=== PATIENT | female | born 1990 | race Caucasian/White ===

== ENCOUNTER 2018-05-18 16:57 | Outpatient (CLI) | payer OTHER ==
[~2018-05-18] VITALS: Ht 177.8 cm; Wt 138.2 kg
[~2018-05-18 16:57] MED LIST: NORCO 325 MG-51 TAB PO; PRENATAL1 TA7 PO; SPRINTEC 35 MCG1 TAB PO
[2018-05-18 17:00] VITALS: BP 128/73; PULSE 96
[2018-05-18 17:30] VITALS: BP 132/65; PULSE 94
== END 2018-05-18 17:30 | disposition home or self-care (01) ==
LOC: LDRO 16:57
DX: O99.89 Other specified diseases and conditions complicating pregnancy, childbirth and the puerperium (principal); R11.0 Nausea; Z3A.18 18 weeks gestation of pregnancy

== ENCOUNTER 2018-06-22 14:05 | Emergency (ER) | payer OTHER ==
[~2018-06-22] VITALS: Ht 180.3 cm; Wt 138.2 kg
[2018-06-22 14:10] VITALS: TEMP 98.1
[2018-06-22 15:57] LABS: BASO % 0.3 % (0.0-2.0); EOS # 0.1 (0.0-0.7); EOS % 0.4 % (0-4.0); GRAN % 77.5 % (42.2-75.2); HEMOGLOBIN 12.5 g/dl (12.5-16.0); LYMPH % 17.1 % (20.0-51.0); MEAN CELL VOLUME 87 fl (80.0-100.0); MEAN CORPUSCULAR HEMOGLOBIN 30 pg (27.0-31.0); MEAN CORPUSCULAR HGB CONC 34 g/dl (33.0-37.0); MEAN PLATELET VOLUME 10.7 fl (7.4-10.4); MONO # 0.5 (0.1-0.6); MONO % 4.3 % (1.7-9.3); PLATELET COUNT 231 K/mm3 (130-400); RED BLOOD COUNT 4.21 M/mm3 (4.10-5.30); REDCELL DISTRIBUTION WIDTH-CV 13.8 % (11.5-14.5)
[2018-06-22 16:02] LABS: HEMATOCRIT 36.7 % (37.0-47.0)
[2018-06-22 16:17] LABS: ALBUMIN 3.6 gm/dL (3.5-5.0); BILIRUBIN,TOTAL 0.3 mg/dL (0.0-1.0); CALCIUM 9.4 mg/dL (8.4-10.2); CREATININE, serum 0.55 mg/dL (0.52-1.25); MAGNESIUM 1.7 mg/dL (1.6-2.3); TOTAL PROTEIN 6.9 gm/dL (6.4-8.2)
[2018-06-22 16:55] LABS: COLLECTION METHOD CLEAN CATCH
[2018-06-22 17:03] LABS: INR 1.1 (0.8-3.0); PROTHROMBIN TIME 12.2 SECONDS (9.7-12.8)
[2018-06-22 17:07] LABS: MUCOUS Present /lpf; PH 6 (5-8); URINE APPEARANCE Hazy; URINE BACTERIA Rare /hpf; URINE BILIRUBIN Negative (NEGATIVE); URINE BLOOD Negative (NEGATIVE); URINE COLOR Yellow; URINE GLUCOSE Negative (NEGATIVE); URINE KETONE 1+ (NEGATIVE); URINE LEUKOCYTE ESTERASE 1+ (NEGATIVE); URINE NITRATE Negative (NEGATIVE); URINE PROTEIN(semi-quant) Negative (NEGATIVE); URINE RBC 0-2 /hpf
[2018-06-22] MEDS ORDERED: MACROBID 1100 MG/CAP PO (17:52)
[2018-06-22 18:13] VITALS: BP 121/69; PULSE 83
== END 2018-06-22 18:14 | disposition home or self-care (01) ==
LOC: COL.ER 14:05
PROVIDERS: Emergency Medicine
DX: O23.92 Unspecified genitourinary tract infection in pregnancy, second trimester (principal); O26.892 Other specified pregnancy related conditions, second trimester; R00.2 Palpitations; Z90.89 Acquired absence of other organs; Z98.890 Other specified postprocedural states; Z3A.00 Weeks of gestation of pregnancy not specified
CPT/HCPCS: A4216; J0696; J7040

== ENCOUNTER 2019-05-04 10:36 | Inpatient (IN) | payer OTHER ==
[2019-05-04] VITALS (10 sets, daily range): BP systolic 138–187; BP diastolic 74–99; PULSE 63–95; TEMP 97–98.8
[~2019-05-04] VITALS: Ht 180.3 cm; Wt 132.7 kg
[~2019-05-04 10:36] MED LIST changes: +MACROBID 1100 MG/CAP PO
[2019-05-04] MEDS ORDERED: SPRINTEC 35 MCG1 TAB PO (10:47)
[2019-05-04 12:00] LABS: BASO % 0.2 % (0.0-2.0); GRAN # 8.9 (1.4-6.5); GRAN % 87.3 % (42.2-75.2); HEMATOCRIT 43.9 % (37.0-47.0); HEMOGLOBIN 14.4 g/dl (12.5-16.0); LYMPH # 0.9 (1.2-3.4); LYMPH % 8.9 % (20.0-51.0); MEAN CELL VOLUME 81 fl (80.0-100.0); MEAN CORPUSCULAR HEMOGLOBIN 26 pg (27.0-31.0); MEAN CORPUSCULAR HGB CONC 33 g/dl (33.0-37.0); MEAN PLATELET VOLUME 10.7 fl (7.4-10.4); MONO # 0.3 (0.1-0.6); MONO % 3.3 % (1.7-9.3); PLATELET COUNT 326 K/mm3 (130-400); RED BLOOD COUNT 5.45 M/mm3 (4.10-5.30); REDCELL DISTRIBUTION WIDTH-CV 15.9 % (11.5-14.5)
[2019-05-04 12:12] LABS: ALBUMIN 4.4 gm/dL (3.5-5.0); BILIRUBIN,TOTAL 1.7 mg/dL (0.0-1.0); C-REACTIVE PROTEIN 2.4 mg/dL (0.0-0.9); CALCIUM 9.7 mg/dL (8.4-10.2); CREATININE, serum 0.87 (0.52-1.25); POTASSIUM 4.5 mmol/L (3.4-5.0); TOTAL PROTEIN 8.4 gm/dL (6.4-8.2)
--- NOTE | 2019-05-04 13:50 | NUR ---
arrived on unit per WC and assisted into bed, and infant daughter at bedside
--- NOTE | 2019-05-04 14:00 | NUR ---
admission assessment completed, see for further info, denies needs at this time
--- NOTE | 2019-05-04 15:04 | NUR ---
Dr Torres in to see patient, to surgery per bed
--- NOTE | 2019-05-04 15:15 | NUR ---
to surgery per bed
--- NOTE | 2019-05-04 17:35 | NUR ---
arrived on unit per bed from PACU, awake and alert, IV infusing per gravity, robotic sites with liriano set and CD&I,
--- NOTE | 2019-05-04 17:45 | NUR ---
visiting with family, c/o pain in chest and explained this is from the surgery and air in the abdomen, verbalizes understanding
--- NOTE | 2019-05-04 18:15 | NUR ---
C/O pain and medicated with motrin 600mg, had some clear liquids and tolerated well, encouraged to take liquids without a straw, verbalizes understanding
--- NOTE | 2019-05-04 18:30 | NUR ---
C/O some nausea, encourage to wait to have any more liquids until maybe it passes
--- NOTE | 2019-05-04 19:05 | NUR ---
bedside shift report given to MARICEL Kilgore
--- NOTE | 2019-05-04 19:35 | NUR ---
Report received. Assumed care for shift production supervisor. Assessment complete. VS stable. 5 robotic lap sites to abdomen-edges well approximated-slight bruising noted. C/O pain as well as [place]-no emesis. Zofran given per dr order. Morphine also given for pain per dr order. States pain is on right side rating it 5/10-described as constant throbbing. IV to right AC infusing LR. Instructed to call when ready to try to void. Discussed ambulation for this shift as well. Denies questions or concerns. Call light in reach. Bed in low position/wheels locked. Will monitor.
[2019-05-05] VITALS (8 sets, daily range): BP systolic 131–152; BP diastolic 69–85; PULSE 50–67; TEMP 97.5–98.6
[2019-05-05 06:50] LABS: ALBUMIN 3.6 gm/dL (3.5-5.0); BILIRUBIN,TOTAL 2.9 mg/dL (0.0-1.0); CALCIUM 8.9 mg/dL (8.4-10.2); CREATININE, serum 0.84 (0.52-1.25); POTASSIUM 4.3 mmol/L (3.4-5.0)
--- NOTE | 2019-05-05 08:00 | NUR ---
NPO. Abdominal lap sites x 5 CDI. No complaints. Ambulatory in room.
--- NOTE | 2019-05-05 09:50 | NUR ---
Consent signed for ERCP. To procedure with OR staff.
--- NOTE | 2019-05-05 10:35 | NUR ---
Returned to room. VSS. Family at bedside.
--- NOTE | 2019-05-05 11:20 | NUR ---
Medicated with Morphine for c/o abdominal pain and Zofran for c/o nausea.
--- NOTE | 2019-05-05 13:20 | NUR ---
[place] given for c/o abdominal pain.
--- NOTE | 2019-05-05 15:30 | NUR ---
Taking clear liquids without nausea. Rates pain as 2/10. Dr. Torres given update.
--- NOTE | 2019-05-05 16:30 | NUR ---
No complaints. Prescription and home instructions given. Dismissed to home with family.
== END 2019-05-05 16:30 | disposition home or self-care (01) | DRG 419 ==
LOC: COL.ER 10:36 → SURG 12:25
PROVIDERS: Physician Assistant; ADMIT Surgery
PROC: BF131ZZ Fluoroscopy of Gallbladder and Bile Ducts using Low Osmolar Contrast (ICD-10-PCS; 2019-05-04)
PROC: 8E0W4CZ Robotic Assisted Procedure of Trunk Region, Percutaneous Endoscopic Approach (ICD-10-PCS; 2019-05-04)
PROC: 0FT44ZZ Resection of Gallbladder, Percutaneous Endoscopic Approach (ICD-10-PCS; principal; 2019-05-04 15:00)
PROC: 0FC98ZZ Extirpation of Matter from Common Bile Duct, Via Natural or Artificial Opening Endoscopic (ICD-10-PCS; 2019-05-05)
PROC: 0F798ZZ Dilation of Common Bile Duct, Via Natural or Artificial Opening Endoscopic (ICD-10-PCS; 2019-05-05)
PROC: BF101ZZ Fluoroscopy of Bile Ducts using Low Osmolar Contrast (ICD-10-PCS; 2019-05-05)
DX: K80.63 Calculus of gallbladder and bile duct with acute cholecystitis with obstruction (principal)
CPT/HCPCS: A4216; C1769; J0690; J0696; J1100; J2270; J2405; J2704; J2765; J3010; J7030; J7120; Q9967